=== PATIENT | female | born 1930 | race Caucasian/White ===

== ENCOUNTER → 2016-05-06 | Outpatient (CLI) | payer MEDICARE | END | disposition home or self-care (01) | LOC: PCVCIMAG 12:59 | PROVIDERS: ATTEND Internal Medicine Cardiovascular Disease | DX: I70.213 Atherosclerosis of native arteries of extremities with intermittent claudication, bilateral legs (principal); I25.10 Atherosclerotic heart disease of native coronary artery without angina pectoris; I10 Essential (primary) hypertension; I77.9 Disorder of arteries and arterioles, unspecified; E78.5 Hyperlipidemia, unspecified; Z95.820 Peripheral vascular angioplasty status with implants and grafts | CPT/HCPCS: 80061; 93005; 93925; G0463 ==

== ENCOUNTER → 2016-12-03 | Outpatient (CLI) | payer MEDICARE ==
--- NOTE | 2016-12-03 14:42 | PCVCIMAG ---
EXAM: BILATERAL LOWER EXTREMITY ARTERIAL DUPLEX INDICATION: Peripheral Arterial Disease. Leg pain. FINDINGS: Right Leg: Increased systolic velocity the junction of the external iliac and common femoral artery of 723 cm/s consistent with 95% stenosis. Blunted arterial waveforms throughout the superficial femoral artery and popliteal artery without flow-limiting stenosis. Previous superficial femoral artery stents maintaining good patency. Profunda femoral artery is patent. The anterior tibial and peroneal arteries are patent. Occlusion of the distal posterior tibial artery. Left Leg: Good arterial waveforms in the common femoral and profunda femoral artery without significant stenosis. Good arterial waveforms throughout the superficial femoral artery and popliteal artery without significant stenosis. Previous superficial femoral artery stent maintaining good patency. 70% stenosis proximal anterior tibial artery. The peroneal artery and posterior tibial arteries are patent. IMPRESSION: 95% stenosis at the junction of the right external and right common femoral arteries is critically flow-limiting. Previous right and left superficial femoral artery stents maintaining good patency. LOC:[id number]
== END | disposition home or self-care (01) ==
LOC: PCVCIMAG 13:10
PROVIDERS: ATTEND Internal Medicine Cardiovascular Disease
DX: Z01.812 Encounter for preprocedural laboratory examination (principal); I70.201 Unspecified atherosclerosis of native arteries of extremities, right leg; I77.1 Stricture of artery; I10 Essential (primary) hypertension; E78.5 Hyperlipidemia, unspecified; I77.9 Disorder of arteries and arterioles, unspecified; Z79.82 Long term (current) use of aspirin; Z95.828 Presence of other vascular implants and grafts; Z86.73 Personal history of transient ischemic attack (TIA), and cerebral infarction without residual deficits; Z87.891 Personal history of nicotine dependence; Z79.899 Other long term (current) drug therapy; Z88.8 Allergy status to other drugs, medicaments and biological substances
CPT/HCPCS: 36415; 80061; 93005; 93925; G0463

== ENCOUNTER → 2016-12-05 | Outpatient (CLI) | payer MEDICARE ==
[~2016-12-05] MED LIST: DIAZEPAM 10 MG TABLET. ONE; EPTIFIBATIDE BOLUS 2,000 MCG/ML 10ML VIAL. IV ONE; HEPARIN SODIUM 5,000 UNIT/ML VIAL for PCVC. ONE; IODIXANOL 270 MG/ML 100 ML VIAL. ONE; IV NORMAL SALINE 500ML BAG 500 ML ONE; LIDOCAINE 1% Multi-Dose 20 ML VIAL. ONE; LIDOCAINE 1%/EPI 1:100,000 20 ML VIAL. ONE; MIDAZOLAM HCL/PF 2 MG/2 ML VIAL. ONE; fentaNYL PF VIAL 100 MCG/2 ML VIAL ONE; hydrALAZINE 20 MG/ML VIAL. ONE
--- NOTE | 2016-12-05 16:46 | PCVCINTER ---
EXAM: 1. AORTOGRAM AND BILATERAL LOWER EXTREMITY RUNOFF ANGIOGRAM 2. BILATERAL RENAL ANGIOGRAPHY 3. RIGHT SUPERFICIAL FEMORAL ARTERY ATHERECTOMY. 4. SECONDARY THROMBECTOMY RIGHT SUPERFICIAL FEMORAL ARTERY. 5. DRUG COATED BALLOON ANGIOPLASTY RIGHT SUPERFICIAL FEMORAL ARTERY. 6. ATHERECTOMY AND DRUG COATED BALLOON ANGIOPLASTY RIGHT COMMON FEMORAL ARTERY. 7. DRUG COATED BALLOON ANGIOPLASTY DISTAL RIGHT EXTERNAL ILIAC ARTERY. 8. RIGHT COMMON ILIAC ARTERY ANGIOPLASTY. INDICATION: Peripheral arterial disease. Lifestyle limiting claudication. Hypertension. Renal atherosclerosis. PROCEDURE: Procedure and risks of angiography intervention is appropriate including limb loss stroke and were discussed with the patient's family and consent obtained. The patient's left groin was prepped abnormal sterile fashion. IV conscious sedation was used to procedure with appropriate monitoring from 10:15 AM through 11:45 AM. Ultrasound was used to interrogate the left groin and showed the left common femoral artery to be patent. A permanent spot film was obtained. Under ultrasound guidance access into the left common femoral artery was obtained and a 5 [place] sheath was placed. Through this a 5 [place] flush catheter was placed into the abdominal aorta at the level of the renal arteries and AP aortogram was performed. Catheter was positioned at the aortic bifurcation and both oblique views of the pelvis were obtained. Catheter was positioned into the left external iliac artery and left leg runoff angiography was performed. Catheter was exchanged for a visceral catheter was placed into the right renal arteries and right renal angiograms obtained. Catheter was placed into the the left renal arteries and left renal angiograms were obtained. Catheter was advanced to the level of the right external iliac artery and right leg runoff angiography was obtained. Patient was given 4000 units of heparin. A 6 [place] crossover sheath was placed via the left groin to the level of the right common femoral artery. Atherectomy of the right common femoral artery and distal external iliac artery was performed with 2.0 mm [employer] laser atherectomy catheter in the standard fashion. Atherectomy of the right superficial femoral artery was performed with 2.0 mm [employer] laser atherectomy catheter in the standard fashion. Following atherectomy small areas of thrombus were observed and because of this secondary thrombectomy throughout the right superficial femoral artery was carried out with mechanical suction thrombectomy catheter in the standard fashion. Minimal debris was removed. Following this drug coated balloon angioplasty of the right common femoral artery and external iliac artery was carried out with a 5 x 80 [employer] Breanna Tani LAYOUT ARTIST catheter. Following this drug coated balloon angioplasty of the right superficial femoral artery was carried out with a 5 x 150, 5 x 150, and 5 x 150 Medtronic Admiral LAYOUT ARTIST catheters. Angioplasty of the right common iliac artery in stent restenosis was performed with an 8 x 4 PowerFlex LAYOUT ARTIST catheter. Follow-up angiogram was performed. Catheters and wires removed. Sheath was removed and hemostasis obtained using the FISH device. No immediate complications. FINDINGS: Aortogram: There is one right and 3 left renal arteries. Advanced calcific plaque mid and distal infrarenal abdominal aorta does not cause high-grade stenosis. Pelvis: Moderate restenosis distal right common iliac artery within prior stent. Left common iliac artery stent maintaining good patency. Critical grade stenosis distal right external iliac artery. Previous left external iliac artery stent maintaining good patency. Both internal iliac arteries are patent. Subtotal occlusion of the right common femoral artery. The right profunda femoral artery is patent. Left common femoral artery shows good patency as does the profunda femoral artery. Right renal artery: Minimal plaque proximal vessel does not cause significant stenosis. Left renal artery: 3 left renal arteries all of which show mild plaque at their origin without evidence of high-grade stenosis. Right leg: Moderate restenosis distal superficial femoral artery within prior stent. Popliteal artery is patent. The anterior tibial and peroneal arteries show good patency. The distal posterior tibial artery shows complete occlusion. Left leg: Previous superficial femoral artery stents are widely patent throughout. The popliteal artery is patent. Three-vessel runoff into the foot of the vessels are somewhat small. Right common iliac artery: Following procedure as above vessel shows good patency. Right external iliac artery: Following procedure as above vessel shows satisfactory patency. Right common femoral artery: Following procedure as above vessel shows good patency. Right superficial femoral artery: Following procedure as above vessel shows good patency. IMPRESSION: Subtotal occlusion/high-grade stenosis distal right external iliac artery and upper right common femoral artery were treated as above with satisfactory patency restored. Significant stenosis right common iliac artery and in the distal right superficial femoral artery within prior stent was treated as above with good patency restored. impression follow up LOC:[id number]
== END | disposition home or self-care (01) ==
LOC: PCVCINTER 09:08
PROVIDERS: ATTEND Nuclear Medicine Nuclear Cardiology
DX: I70.213 Atherosclerosis of native arteries of extremities with intermittent claudication, bilateral legs (principal); I10 Essential (primary) hypertension; I70.1 Atherosclerosis of renal artery
CPT/HCPCS: 36252; 37186; 37220; 37222; 37225; 75716; 76937; 99152; 99153; C1725; C1751; C1757; C1760; C1769; C1885; C1887; C1894; C2623; J0360; J0690; J1327; J1644; J2250; J3010; J3490; J7040; Q9966

== ENCOUNTER → 2017-03-27 | Outpatient (CLI) | payer MEDICARE | END | disposition home or self-care (01) | LOC: PCVCIMAG 08:11 | DX: I73.9 Peripheral vascular disease, unspecified (principal); I25.10 Atherosclerotic heart disease of native coronary artery without angina pectoris; I77.9 Disorder of arteries and arterioles, unspecified; E78.00 Pure hypercholesterolemia, unspecified; Z87.891 Personal history of nicotine dependence; Z79.899 Other long term (current) drug therapy | CPT/HCPCS: 93923; 93926; 93978; G0463 ==

== ENCOUNTER → 2017-10-06 | Outpatient (CLI) | payer MEDICARE ==
--- NOTE | 2017-10-06 14:19 | PCVCIMAG ---
EXAM: BILATERAL CAROTID DUPLEX INDICATION: Carotid Occlusive Disease. FINDINGS: Doppler Measurements (centimeters per second): RIGHT: Peak CCA-49, Peak ECA-371, Diastolic ICA-27, Peak ICA-135, ICA/CCA Ratio-2.8. LEFT: Peak CCA-59, Peak ECA-153, Diastolic ICA-15, Peak ICA-70, ICA/CCA Ratio-1.2. RIGHT CAROTID: The carotid bulb has moderately severe plaque. The proximal internal carotid artery shows 40-50% stenosis. The common carotid artery shows no significant stenosis. The external carotid artery shows 90% stenosis. LEFT CAROTID: The carotid bulb has moderate plaque. The proximal internal carotid artery shows <40% stenosis. The common carotid artery shows no significant stenosis. The external carotid artery shows 50% stenosis. Antegrade flow in both vertebral arteries. IMPRESSION: 40-50% stenosis of the right internal carotid artery with moderately severe plaque. <40% stenosis of the left internal carotid artery with moderate plaque. No change since October 2015. LOC:[id number]
--- NOTE | 2017-10-06 15:55 | PCVCIMAG ---
EXAM: BILATERAL LOWER EXTREMITY ARTERIAL DUPLEX INDICATION: Peripheral Arterial Disease. Leg pain. FINDINGS: Right Leg: Mild restenosis kenaitze common femoral artery not felt flow-limiting. Profunda femoral arteries patent. Superficial femoral artery and popliteal artery are patent. Previous stents in the superficial femoral artery are patent. Anterior tibial and peroneal arteries are patent. Occlusion of the distal posterior tibial artery. Left Leg: Common femoral and profunda femoral arteries are patent. Superficial femoral artery and popliteal artery are patent. Previous stent left superficial femoral artery maintaining adequate patency. 70% stenosis proximal anterior tibial artery. Peroneal artery and posterior tibial arteries are patent. IMPRESSION: Previous right and left superficial femoral artery stents maintaining satisfactory patency. Mild restenosis prior site of intervention the right common femoral artery. Unchanged occlusion distal right posterior tibial artery. 70% stenosis proximal left anterior tibial artery. LOC:[id number]
== END | disposition home or self-care (01) ==
LOC: PCVCIMAG 16:19
PROVIDERS: ATTEND Internal Medicine Cardiovascular Disease
DX: I73.9 Peripheral vascular disease, unspecified (principal); I77.9 Disorder of arteries and arterioles, unspecified; I25.10 Atherosclerotic heart disease of native coronary artery without angina pectoris; I10 Essential (primary) hypertension; E78.00 Pure hypercholesterolemia, unspecified; I65.23 Occlusion and stenosis of bilateral carotid arteries; Z79.82 Long term (current) use of aspirin; Z87.891 Personal history of nicotine dependence
CPT/HCPCS: 80061; 93880; 93925; G0463

== ENCOUNTER → 2018-07-01 | Outpatient (CLI) | payer MEDICARE ==
--- NOTE | 2018-07-01 09:30 | PCVCIMAG ---
EXAM: NONINVASIVE ARTERIAL EXAMINATION OF BOTH LOWER EXTREMITIES INCLUDING PRE AND POST EXERCISE PRESSURE MEASUREMENTS AND DOPPLER WAVEFORMS INDICATION: Peripheral Arterial Disease. Leg pain. FINDINGS: Right Brachial: 111 mm Hg. Right Dorsalis Pedis: 100 mm Hg. Right Posterior Tibial: 68 mm Hg. Right POORNIMA = 0.90. Left Brachial: 110 mm Hg. Left Dorsalis Pedis: 95 mm Hg. Left Posterior Tibial: 87 mm Hg. Left POORNIMA = 0.86. Post Exercise: Right Brachial 114 mm Hg. Right Dorsalis Pedis: 65 mm Hg. Left Dorsalis Pedis: 100 mm Hg. Right POORNIMA = 0.57. Left POORNIMA = 0.88. IMPRESSION: No resting ischemia in the right lower extremity. Moderate exercise induced ischemia in the right lower extremity. No resting ischemia in the left lower extremity. No exercise induced ischemia in the left lower extremity. LOC:[id number]
--- NOTE | 2018-07-01 09:37 | PCVCIMAG ---
EXAM: BILATERAL LOWER EXTREMITY ARTERIAL DUPLEX INDICATION: Peripheral Arterial Disease. Leg pain. FINDINGS: Right Leg: Increased systolic velocity 476 cm/s common femoral artery consistent with 90% restenosis. Profunda femoral artery is patent. Superficial femoral artery and popliteal artery are patent. Previous stents superficial femoral artery are patent. Occlusion of the mid/distal posterior tibial arteries unchanged. The anterior tibial and peroneal arteries are patent. Left Leg: Common femoral and profunda femoral arteries are patent. Superficial femoral and popliteal artery are patent. Previous stents throughout the superficial femoral artery are patent. 70% stenosis mid posterior tibial artery. The anterior tibial and peroneal arteries are patent. IMPRESSION: 90% restenosis right common femoral artery. Previous right superficial femoral artery stent maintaining satisfactory patency. Unchanged occlusion of the mid/distal right posterior tibial artery. 70% stenosis mid left posterior tibial artery. Otherwise no flow limiting arterial stenosis in the left lower extremity. Previous left superficial femoral artery stent maintaining satisfactory patency. LOC:[id number]
== END | disposition home or self-care (01) ==
LOC: PCVCIMAG 08:00
PROVIDERS: ATTEND Internal Medicine Cardiovascular Disease
DX: I73.9 Peripheral vascular disease, unspecified (principal); I10 Essential (primary) hypertension; E78.00 Pure hypercholesterolemia, unspecified; I77.9 Disorder of arteries and arterioles, unspecified; G45.9 Transient cerebral ischemic attack, unspecified; F03.90 Unspecified dementia, unspecified severity, without behavioral disturbance, psychotic disturbance, mood disturbance, and anxiety; Q21.1 Atrial septal defect
CPT/HCPCS: 36415; 80061; 93005; 93924; 93925; G0463

== ENCOUNTER → 2019-01-04 | Outpatient (CLI) | payer MEDICARE ==
--- NOTE | 2019-01-04 12:15 | PCVCIMAG ---
EXAM: BILATERAL CAROTID DUPLEX INDICATION: Carotid Occlusive Disease. FINDINGS: Doppler Measurements (centimeters per second): RIGHT: Peak CCA-39, Peak ECA-446, Diastolic ICA-25, Peak ICA-136, ICA/CCA Ratio-3.5. LEFT: Peak CCA-68, Peak ECA-126, Diastolic ICA-14, Peak ICA-59, ICA/CCA Ratio-0.9. RIGHT CAROTID: The carotid bulb has severe plaque. The proximal internal carotid artery shows 50% stenosis. The common carotid artery shows no significant stenosis. The external carotid artery shows 90% stenosis. LEFT CAROTID: The carotid bulb has moderate plaque. The proximal internal carotid artery shows <40% stenosis. The common carotid artery shows no significant stenosis. The external carotid artery shows 40% stenosis. Antegrade flow in both vertebral arteries. IMPRESSION: 50% stenosis of the right internal carotid artery with severe plaque. <40% stenosis of the left internal carotid artery with moderate plaque. No change since September 2017 study. LOC:[id number]
--- NOTE | 2019-01-04 12:17 | PCVCIMAG ---
EXAM: NONINVASIVE ARTERIAL EXAMINATION OF BOTH LOWER EXTREMITIES INCLUDING PRE AND POST EXERCISE PRESSURE MEASUREMENTS AND DOPPLER WAVEFORMS INDICATION: Peripheral arterial disease. FINDINGS: Right Brachial: 129 mm Hg. Right Dorsalis Pedis: 122 mm Hg. Right Posterior Tibial: 0 mm Hg. Right POORNIMA = 0.91. Left Brachial: 134 mm Hg. Left Dorsalis Pedis: 125 mm Hg. Left Posterior Tibial: 98 mm Hg. Left POORNIMA = 0.93. Post Exercise: Left Brachial 145 mm Hg. Right Dorsalis Pedis: 87 mm Hg. Left Dorsalis Pedis: 130 mm Hg. Right POORNIMA = 0.60. Left POORNIMA = 0.90. IMPRESSION: No resting ischemia in the right lower extremity. Mild/moderate exercise induced ischemia in the right lower extremity. No resting ischemia in the left lower extremity. No exercise induced ischemia in the left lower extremity. LOC:[id number]
--- NOTE | 2019-01-04 12:24 | PCVCIMAG ---
EXAM: BILATERAL LOWER EXTREMITY ARTERIAL DUPLEX INDICATION: Peripheral Arterial Disease. Leg pain. FINDINGS: Right Le-80% stenosis distal external iliac artery. Increased systolic velocity 441 cm/s upper common femoral artery consistent with 80-90% restenosis at previous site of DCB. Superficial femoral artery and popliteal artery are patent. Previous stents of the superficial femoral artery maintaining adequate patency. Unchanged occlusion mid/distal posterior tibial artery. The anterior tibial and peroneal arteries are patent. Left Leg: Common femoral and profunda femoral arteries are patent. Superficial femoral artery and popliteal artery are patent. Previous stents of the superficial femoral artery maintaining adequate patency. 80% stenosis mid posterior tibial artery. The anterior tibial and peroneal arteries are patent. IMPRESSION: 80-90% restenosis upper right common femoral artery previous site of atherectomy and DCB. Previous right superficial femoral artery stent maintaining satisfactory patency. Unchanged occlusion of the mid/distal right posterior tibial artery. 80% stenosis mid left posterior tibial artery. Otherwise no flow limiting stenosis in the left lower extremity. Previous left superficial femoral artery stent maintaining satisfactory patency. Findings are similar to prior study from June 2018. LOC:[id number]
== END | disposition home or self-care (01) ==
LOC: PCVCIMAG 09:41
PROVIDERS: ATTEND Nuclear Medicine Nuclear Cardiology
DX: I65.23 Occlusion and stenosis of bilateral carotid arteries (principal); I73.9 Peripheral vascular disease, unspecified; I25.10 Atherosclerotic heart disease of native coronary artery without angina pectoris; I10 Essential (primary) hypertension; E78.00 Pure hypercholesterolemia, unspecified; Z87.891 Personal history of nicotine dependence
CPT/HCPCS: 93880; 93924; 93925; G0463